=== PATIENT | female | born 1960 | race Caucasian/White ===

== ENCOUNTER 2019-12-14 13:33 | Outpatient (CLI) | payer OTHER, SELFPAY ==
--- NOTE | 2019-12-14 13:39 | MM_ITS ---
WS: [id number] BILATERAL DIGITAL SCREENING MAMMOGRAM WITH CAD CLINICAL INFORMATION: SCREENING HISTORY: Screening mammogram. No current complaints. COMPARISON: [id number] TECHNIQUE: Bilateral CC and MLO views. FINDINGS: Fatty-replaced breasts bilaterally. No suspicious focal mass, asymmetry, calcifications, or websphere commerce architect ural distortion. No evidence of malignancy. MM/[place] [id number] IMPRESSION: BI-RADS: 1-Negative FOLLOW UP: 1 Year Follow-up Recommend return to annual screening mammography.
== END 2019-12-14 13:34 | disposition home or self-care (01) ==
LOC: RADSHAW 13:36
PROVIDERS: Family Provider Family Medicine; PCP Family Medicine; Visit Provider Family Medicine
DX: Z12.31 Encounter for screening mammogram for malignant neoplasm of breast (principal)
CPT/HCPCS: 77067

== ENCOUNTER 2019-12-16 17:19 | Outpatient (CLI) | payer OTHER, SELFPAY | END 2019-12-16 17:20 | disposition home or self-care (01) | LOC: SPT 17:20 | PROVIDERS: Family Provider Family Medicine; PCP Family Medicine; Visit Provider Podiatrist Foot & Ankle Surgery | DX: M21.41 Flat foot [pes planus] (acquired), right foot (principal); M21.42 Flat foot [pes planus] (acquired), left foot | CPT/HCPCS: L3030 ==

== ENCOUNTER → 2022-05-29 07:55 | Outpatient (BNVA) | payer OTHER, SELFPAY | PROVIDERS: Family Provider Family Medicine; PCP Family Medicine; Visit Provider Family Medicine | DX: Z00.00 Encounter for general adult medical examination without abnormal findings (principal); I10 Essential (primary) hypertension; E88.81 Metabolic syndrome and other insulin resistance; G47.33 Obstructive sleep apnea (adult) (pediatric); J45.909 Unspecified asthma, uncomplicated | CPT/HCPCS: 80053; 80061; 82607; 83036; 84443; 85025 ==

== ENCOUNTER 2022-06-26 10:22 | Outpatient (CLI) | payer OTHER, SELFPAY ==
--- NOTE | 2022-06-26 10:47 | MM_ITS ---
WS: [id number] Exam: [place] [id number] Date/Time of Exam: 06/26/2022 10:48 AM Reason For Exam: SCREEN VIEWS: MLO and CC views both breasts. 3D digital tomosynthesis is also included in this exam. Comparison made with prior exam of 06/21/2013, 09/26/2014, 12/04/2015, 03/09/2018, 12/14/2019. Findings: There was no sign of mass, architectural distortion or suspicious calcification in either breast. Fa tty MM/[place] [id number] Impression: BI-RADS: 1-Negative FOLLOW-UP: 1 Year Follow-up This mammogram was also analyzed by the Computer Aided Detection System R2 Imag e Anesthesiologist Physician.
== END 2022-06-26 10:23 | disposition home or self-care (01) ==
LOC: RAD 10:23
PROVIDERS: Family Provider Family Medicine; PCP Family Medicine; Visit Provider Family Medicine
DX: Z12.31 Encounter for screening mammogram for malignant neoplasm of breast (principal)
CPT/HCPCS: 77063; 77067

== ENCOUNTER 2022-06-27 16:43 | Outpatient (CLI) | payer OTHER, SELFPAY ==
--- NOTE | 2022-06-27 16:54 | XR_ITS ---
WS: [id number] Exam: XR thoracic spine 2V [id number] Date/Time of Exam: 06/27/2022 4:54 PM Reason For Exam: back pain No fracture or dislocation. There is spondylosis. No scoliosis. Normal paraspinal soft tissues. XR/XR thoracic spine 2V [id number] IMPRESSION: 1. Mild degenerative change and spondylosis. 2. No fracture or other significant finding.
== END 2022-06-27 16:44 | disposition home or self-care (01) ==
LOC: RAD 16:43
PROVIDERS: PCP Family Medicine; Visit Provider Nurse Practitioner Family
DX: M47.814 Spondylosis without myelopathy or radiculopathy, thoracic region (principal)
CPT/HCPCS: 72070

== ENCOUNTER 2022-07-04 06:00 | Outpatient (RCR) | payer OTHER, SELFPAY | END 2022-07-31 23:59 | disposition home or self-care (01) | LOC: SPT 06:00 | PROVIDERS: Visit Provider Nurse Practitioner Family | DX: M54.9 Dorsalgia, unspecified (principal) | CPT/HCPCS: 20560; 97110; 97161; 97530 ==

== ENCOUNTER 2022-08-01 06:00 | Outpatient (RCR) | payer OTHER, SELFPAY | END 2022-08-30 23:59 | disposition home or self-care (01) | LOC: SPT 06:00 | PROVIDERS: PCP Family Medicine; Visit Provider Nurse Practitioner Family | DX: M54.59 Other low back pain (principal) | CPT/HCPCS: 97110; 97530 ==

== ENCOUNTER 2022-12-15 08:23 | Inpatient (IN) | payer OTHER, SELFPAY ==
[2022-12-15] VITALS (15 sets, daily range): BP systolic 170–218; BP diastolic 81–121; PULSE 70–94; RESP 16–26; TEMP 35.8–36.9; O2SAT 80–100; BMI 40.7
--- NOTE | 2022-12-15 08:29 | XRR_ITS ---
PROCEDURE INFORMATION: Exam: XR Chest Exam date and time: 12/15/2022 8:33 AM Age: 62 years old Clinical indication: Dyspnea; Additional info: Dyspne TECHNIQUE: Imaging protocol: Radiologic exam of the chest. Views: 1 view. COMPARISON: CR XR thoracic spine 2V [id number] 06/27/2022 4:53 PM FINDINGS: Lungs: Dense confluent consolidation in the right lung. Possible ground-glass consolidation in the left lower lung. Pleural spaces: No pneumothorax. No pleural effusion. Heart/Mediastinum: The cardiomediastinal silhouette is at the upper limits of normal. Bones/joints: Unremarkable. XR/XR chest 1V portable [id number] IMPRESSION: Airspace consolidation concerning for pneumonia versus pulmonary edema.
--- NOTE | 2022-12-15 08:31 | ED_ITS ---
HPI - SOB/Dyspnea General: Chief Complaint: Shortness of Breath/Dyspnea Stated Complaint: SOB Time Seen by Provider: 12/15/22 08:24 History of Present Illness: HPI Narrative: 62-year-old female presents with shortness of breath. Patient reports that around 2 AM this morning she awoke with short of breath took an albuterol and has some mild improvement. Then she awoke again at 430 and had to take another 1. Patient then just prior to arrival called EMS because she was once again short of breath. EMS reports that when they got there her oxygen was in the 80s she was found leaning forward in tripod position. They provided her with an albuterol nebulizer, DuoNeb and Solu-Medrol in route. On oxygen her O2 improved to mid 90s. PFSH ED PFSH: Medical History Back Pain Course Vital Signs: Vital signs: Vital Signs Temperature 96.5 F L 12/15/22 08:27 Pulse Rate 82 12/15/22 08:48 Respiratory Rate 17 12/15/22 08:48 Blood Pressure 185/93 12/15/22 10:49 Pulse Oximetry 94 12/15/22 08:48 Oxygen Delivery Me thod 12/15/22 08:48 Oxygen Flow Rate 9 12/15/22 08:48 MDM - SOB/Dyspnea Medical Decision Making Patient's x-ray showed some airspace consolidation with pneumonia versus pulmonary edema with the majority of in the right lower lobe. Patient's symptoms improved following treatment with both her albuterol along with nitro and hydralazine for blood pressure. Her blood pressure came down from the 220s down to 180. Reviewing her outpatient chart shows that her blood pressure is normally in the 160s. Discussed with her that it is likely a mixed picture of maybe some edema versus a pneumonia. Her respiratory panel was completely negative. She was treated with Rocephin and azithromycin for it with concerns or questionable community-acquired pneumonia. Patient does not normally require oxygen and will be admitted for further inpatient management. Reviewed case with Dr. Roque who is the accepting physician. Lab Data 12/15/22 08:10 12/15/22 08:10 Labs/Radiology: Radiology Impressions Chest X-Ray 12/15/22 08:29 IMPRESSION: Airspace consolidation concerning for pneumonia versus pulmonary edema. Laboratory Results WBC 9.4 10^3/uL (4.0-10.0) 12/15/22 08:10 RBC 5.29 10^6/uL (4.1-5.3) 12/15/22 08:10 Hgb 16.4 g/dL (11.5-15.3) H 12/15/22 08:10 Hct 51.1 % (37.0-47.0) H 12/15/22 08:10 MCV 96.6 fl (81-99) 12/15/22 08:10 MCH 31.0 pg (28.0-34.0) 12/15/22 08:10 MCHC 32.1 g/dL (30.0-36.0) 12/15/22 08:10 RDW 13.4 % (12.1-15.1) 12/15/22 08:10 Plt Count 296 10^3/cmm (130-400) 12/15/22 08:10 MPV 11.6 fL (7.4-10.4) H 12/15/22 08:10 Neut % (Auto) 73.7 % 12/15/22 08:10 Lymph % (Auto) 13.7 % 12/15/22 08:10 [place] % (Auto) 7.5 % 12/15/22 08:10 Eos % (Auto) 3.9 % 12/15/22 08:10 Baso % (Auto) 0.6 % 12/15/22 08:10 Neut # (Auto) 6.90 10^3/uL (1.8-7.7) 12/15/22 08:10 Lymph # (Auto) 1.3 10^3/uL (0.8-4.8) 12/15/22 08:10 [place] # (Auto) 0.7 10^3/uL (0.2-0.9) 12/15/22 08:10 Eos # (Auto) 0.4 10^3/uL (0.0-0.8) 12/15/22 08:10 Baso # (Auto) 0.1 10^3/uL (0.0-0.1) 12/15/22 08:10 Nucleated RBC % (auto) 0 % 12/15/22 08:10 Nucleated RBCs # 0.0 /100WBC 12/15/22 08:10 Sodium 135 mmol/L (136-145) L 12/15/22 08:10 Potassium 4.1 mmol/L (3.5-5.1) 12/15/22 08:10 Chloride 99 mmol/L (98-107) 12/15/22 08:10 Carbon Dioxide 22 mmol/L (22-29) 12/15/22 08:10 Anion Gap 18.1 (5-19) 12/15/22 08:10 BUN 16 mg/dL (8-23) 12/15/22 08:10 Creatinine 1.2 mg/dL (0.5-0.9) H 12/15/22 08:10 GFR Calculation 45.2 mL/min (90-130) L 12/15/22 08:10 Glucose 282 mg/dL (65-115) H 12/15/22 08:10 Calculated Osmolality 291 mOsm/kg (285-295) 12/15/22 08:10 Lactate 2.4 mmol/L (0.5-2.2) H 12/15/22 09:00 Calcium 8.5 mg/dL (8.5-10.5) 12/15/22 08:10 Magnesium 2.1 mg/dL (1.7-2.3) 12/15/22 08:10 NT-Pro-B Natriuret Pep 611 pg/mL (0-125) H 12/15/22 08:10 Nasal Influ A H1 2008 PCR Not detected (NOT DETECT) 12/15/22 08:10 Adenovirus (PCR) Not detected (NOT DETECT) 12/15/22 08:10 C. pneumoniae DNA (PCR) Not detected (NOT DETECT) 12/15/22 08:10 Coronavirus 229E (PCR) Not detected (NOT DETECT) 12/15/22 08:10 Human Metapneumovir PCR Not detected (NOT DETECT) 12/15/22 08:10 Influenza A (H1) PCR Not detected (NOT DETECT) 12/15/22 08:10 Influenza A (H3) PCR Not detected (NOT DETECT) 12/15/22 08:10 Influenza Type A (PCR) Not detected (NOT DETECT) 12/15/22 08:10 Influenza Type B (PCR) Not detected (NOT DETECT) 12/15/22 08:10 M. pneumoniae (PCR) Not detected (NOT DETECT) 12/15/22 08:10 Parainfluenza 1 (PCR) Not detected (NOT DETECT) 12/15/22 08:10 Parainfluenza 2 (PCR) Not detected (NOT DETECT) 12/15/22 08:10 Parainfluenza 3 (PCR) Not detected (NOT DETECT) 12/15/22 08:10 Parainfluenza 4 (PCR) Not detected (NOT DETECT) 12/15/22 08:10 RSV Type A (PCR) Not detected (NOT DETECT) 12/15/22 08:10 RSV Type B (PCR) Not detected (NOT DETECT) 12/15/22 08:10 Entero/Rhino (PCR) Not detected (NOT DETECT) 12/15/22 08:10 SARS-CoV-2 (PCR) Not detected (NOT DETECT) 12/15/22 08:10 Discharge Plan Discharge Patient Disposition: Admitted As Inpatient Clinical Impression: Community acquired pneumonia, Pulmonary edema, Hypertension, uncontrolled Condition: Stable Prescriptions: No Action meloxicam 15 mg tablet 15 mg PO DAILY Qty: 30 3RF fluticasone propionate [Allergy Relief (fluticasone)] 50 mcg/actuation spray,suspension 2 spray intranasal DAILY Rx Instructions: administer into each nostril albuterol sulfate [ProAir HFA] 90 mcg/actuation HFA aerosol inhaler 2 puff inhalation Q6H PRN bupropion HCl 150 mg tablet sustained-release 12 hr 150 mg PO BID levofloxacin 500 mg tablet 500 mg PO DAILY Qty: 7 0RF fluoxetine 20 mg capsule 20 mg PO cyclobenzaprine 10 mg tablet 10 mg PO TID Qty: 45 0RF hydrocodone-acetaminophen 7.5-325 mg tablet 1 tab PO Q4H PRN (Reason: pain) 30 Days Qty: 35 0RF Referrals: Fernando Cheney DO [Primary Care Provider] - Coding Level of Care Code ED Die Cast Operator for Jorge Kelsey
--- NOTE | 2022-12-15 08:35 | ECG_ITS ---
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 Measurements Intervals [place] Rate: 85 P: 58 TN: 150 QRS: 2 QRSD: 114 T: 79 QT: 363 QTc: 433 Interpretive Statements SINUS RHYTHM POSSIBLE RIGHT ATRIAL ENLARGEMENT [0.25mV P-WAVE] LEFT ATRIAL ENLARGEMENT [-0.15mV P-WAVE IN V1/V2] MODERATE INTRAVENTRICULAR CONDUCTION DELAY [110+ ms QRS DURATION] NONSPECIFIC T-WAVE ABNORMALITY No previous ECG available for comparison Electronically Signed On 12-15-2022 10:08:58 WILLOWER by Adrián Marie M.D. [id number]
[2022-12-15 09:05] LABS: Basophils # 0.1 10^3/uL (0.0-0.1); Basophils % 0.6 %; Eosinophils # 0.4 10^3/uL (0.0-0.8); Eosinophils % 3.9 %; Hematocrit 51.1 % (37.0-47.0); Hemoglobin 16.4 g/dL (11.5-15.3); Lymphocytes # 1.3 10^3/uL (0.8-4.8); Lymphocytes % 13.7 %; Mean Corpuscular HGB Conc 32.1 g/dL (30.0-36.0); Mean Corpuscular Volume 96.6 fl (81-99); Mean Platelet Volume 11.6 fL (7.4-10.4); Monocytes # 0.7 10^3/uL (0.2-0.9); Monocytes % 7.5 %; Neutrophils % 73.7 %; Nucleated Red Blood Cells % 0 %; Platelet Count 296 10^3/cmm (130-400); Red Blood Count 5.29 10^6/uL (4.1-5.3); Red Cell Distribution Width 13.4 % (12.1-15.1); White Blood Count 9.4 10^3/uL (4.0-10.0)
[2022-12-15] MEDS: cefTRIAXone 1,000 MG in sodium chloride 0.9% (plus) 50 ML 100 MG IV (09:32)
[2022-12-15] MEDS: azithromycin 500 MG in sodium chloride 0.9% 250 ML 250 MG IV (09:32)
[2022-12-15 09:34] LABS: Lactate (Lactic Acid level) 2.4 mmol/L (0.5-2.2)
[2022-12-15 09:35] LABS: Anion Gap 18.1 (5-19); Blood Urea Nitrogen 16 mg/dL (8-23); Calcium 8.5 mg/dL (8.5-10.5); Carbon Dioxide 22 mmol/L (22-29); Chloride 99 mmol/L (98-107); Glomerular Filtration Rate 45.2 mL/min (90-130); Glucose 282 mg/dL (65-115); Magnesium 2.1 mg/dL (1.7-2.3); NT Pro B Type Natriuretic Pept 611 pg/mL (0-125); Osmolality Calculated 291 mOsm/kg (285-295); Potassium 4.1 mmol/L (3.5-5.1); Sodium 135 mmol/L (136-145)
[2022-12-15] MEDS: enalaprilat 1.25 mg/mL Inj 0.625 MG IVP (09:35)
[2022-12-15] MEDS: nitroglycerin 0.4 mg sublingual Tablet SUBLINGUAL (09:35)
[2022-12-15 10:58] LABS: Adenovirus Not Detected (NOT DETECT); Chlamydia Pneumoniae Not Detected (NOT DETECT); Coronavirus 229E,HKU1,NL63,OC4 Not Detected (NOT DETECT); Human Metapneumovirus Not Detected (NOT DETECT); Human Rhinovirus/Enterovirus Not Detected (NOT DETECT); Influenza A Not Detected (NOT DETECT); Influenza A H1 Not Detected (NOT DETECT); Influenza A H1-2009 Not Detected (NOT DETECT); Influenza A H3 Not Detected (NOT DETECT); Influenza B Not Detected (NOT DETECT); Mycoplasma Pneumoniae Not Detected (NOT DETECT); Parainfluenza Virus Type 1 Not Detected (NOT DETECT); Parainfluenza Virus Type 2 Not Detected (NOT DETECT); Parainfluenza Virus Type 3 Not Detected (NOT DETECT); Parainfluenza Virus Type 4 Not Detected (NOT DETECT); Respiratory Syncytial Virus A Not Detected (NOT DETECT); Respiratory Syncytial Virus B Not Detected (NOT DETECT); SARS-COV-2 Not Detected (NOT DETECT)
[2022-12-15] MEDS: enoxaparin 40 mg/0.4 mL Syringe SUBCUT (14:14)
[2022-12-15] MEDS: pantoprazole 40 mg SDV IVP (14:15)
[2022-12-15] MEDS: acetaminophen 325 mg Tablet 650 MG PO (14:18)
[2022-12-15 14:49] LABS: Procalcitonin 0.23 ng/mL (0-0.5)
[2022-12-15] MEDS: ipratropium-albuterol 3 mL Neb INHALATION ×2 (15:48→20:37)
--- NOTE | 2022-12-15 20:55 | P.HP_ITS ---
Providers/Chief Complaint Admitting Physician: Adis Roque DO Primary Care Provider: Fernando Cheney DO Chief Complaint: SOB History of Present Illness Bertha Holguin is a 62 year old female with PMH of HTN, asthma who presented to ER with complaint of difficulty breathing. Reports that symptoms started during the night, with shortness of breath. She used her albuterol inhaler around 2 this morning after awaking with shortness of breath, and again at 430 this morning. She again woke up this morning with dyspnea and elected to call EMS and be evaluated. Upon arrival at the ER, she was noted to be in tripod position with increased work of breathing and oxygen saturation in the 80's. This did improve with supplemental oxygen. She did recieve dose of steroids in the ambulance and was started on breathing treatments. She denies any other recent illness, fever, chills, and says that she has not experienced any chest pain. She did have one episode of diaphoresis earlier this morning. In the ER, labs, CXR, EKG were performed. Labs demonstrated a very mild hy ponatremia with Na at 135, elevated creatinine to 1.2 and elevated lactate. EKG showed sinus rhythm with possible RA enlargement and LA enlargement. CXR was significant for consolidation of the Right lung, possible pleural effusion and ground glass consolidation of the Left lung. Oxygen saturation initially in the 80's that did improve with supplemental oxygen. BP was also noted to be quite elevated with systolic pressures into the 200's at one point. She was started on Rocephin and Azithromycin for presumed pneumonia. Review of Systems General: Reports: 10 or more systems reviewed and unremarkable except in HPI and below Const: Reports: fatigue; Denies: fever(s), chills or body aches Eyes: Denies: change in vision or blurry vision ENMT: Denies: throat pain, uvular edema or enlarged tonsils Card: Denies: chest pain, palpitations or irregular heart rhythm Resp: Reports: dyspnea, non-productive cough and wheezing; Denies: productive cough GI: Denies: abdominal pain, nausea or vomiting : Denies: flank pain, difficulty voiding or dysuria Musc: Denies: neck pain, back pain or extremity pain Skin/Breast: Denies: rash Neuro: Denies: headache(s) Psych: Denies: anxiety or depression Justin/Lymph: Denies: easy bruising or easy bleeding All/Imm: Denies: urticaria Medications/Allergies Home Medications Medication Instructions Recorded Confirmed Last Taken Type albuterol sulfate 90 mcg/actuation 2 puff inhalation Q6H PRN 06/27/22 12/15/22 U nknown History aerosol inhaler (ProAir HFA) Shortness Of Breath bupropion HCl 150 mg tablet,12 hr 150 mg PO BID 06/27/22 12/15/22 12/15/22 History sustained-release fluticasone propionate 50 2 spray intranasal DAILY 06/27/22 12/15/22 Unknown History mcg/actuation nasal spray,suspension (Allergy Relief (fluticasone)) meloxicam 15 mg tablet 15 mg PO DAILY #30 tabs 07/04/22 12/15/22 12/15/22 Rx hydrocodone 7.5 mg-acetaminophen 1 tab PO Q4H PRN pain 1 month #35 07/16/22 12/15/22 Unknown Rx 325 mg tablet tabs fluoxetine 20 mg capsule 20 mg PO DAILY 10/09/22 12/15/22 12/15/22 History Allergies Allergy/AdvReac Type Severity Reaction Status Date / Time No Known Allergies Allergy Verified 07/04/22 09:09 PFSH Acute PFSH: Medical History (Updated 12/15/22 @ 21:34 by Adis Roque DO) Back Pain Hypertension Vitals/I&O/Wt Last Vital Signs Temp 98.2 F 12/15/22 20:00 Pulse 84 12/15/22 20:38 Resp 16 12/15/22 20:38 BP 176/81 12/15/22 20:00 Pulse Ox 94 12/15/22 20:38 O2 Del Method 12/15/22 20:38 O2 Flow Rate 3 12/15/22 20:38 12/15/22 12/15/22 12/15/22 06:59 14:59 22:59 Intake Total 300 / 300 480 / 780 Balance 300 / 300 480 / 780 Weight last 48 hrs Weight 260 lb Physical Exam Narrative: General: Cooperative patient, mildly anxious appearing. Well developed. HEENT: Normocephalic, Atraumatic. External ears normal. Nasal passages patent without drainage. MMM. Heart: RRR. No rubs, gallops or murmurs. Resp: Rales present throughout the lung posey. MIld respiratory distress noted. No accessory muscle use. Abd: Soft, non-tender, Non-distended. Extremities: No edema. Skin: No rash or lesions on exposed areas. Data 12/15/22 08:10 12/15/22 08:10 A&P Assessment and plan (1) Community acquired pneumonia: (2) Pulmonary edema: (3) Hypertension, uncontrolled: (4) Acute respiratory failure with hypoxia: (5) Blood glucose elevated: Plan 62 y/o F with PMH of HTN and asthma admitted for hypoxia, shortness of breath and presumed pneumonia. - Admit to [facility] inpatient workup and treatment. - DDx; Pneumonia vs. PE vs. Pneumonitis vs. Pleural effusion. - CXR with Right lung consolidation. Has not had chest pain or tachycardia throughout the monitoring period. EKG did not demonstrate ST-T elevation. - WBC count normal at this time. Respiratory panel was negative. COVID,flu n egative. Elevated lactate. - Will continue Rocephin, Azithromycin for suspected Pneumonia. - Recheck labs in a.m. Repeat Lactate - Procalcitonin. - Start amlodipine for HTN. - Received NS bolus and will continue IV fluids. - RAAT and O2 protocol to maintain sats >90%. DuoNebs q6hr. - Methylprednisolone 60mg q12hr for now. - DVT PPx with lovenox. - Glucose was elevated on admission, will check A1c. - Continue telemetry, q4 vitals. - Regular diet. - Continue other home medications for chronic illnesses. Code Status: Full Diet: regular DVT PPx: Lovenox GI PPx: Protonix IVF: NS @ 100ml/hr. Disposition: Med/Surg. Likely discharge to home when stable. Attestations Medical Necessity Statement*: Patient will need greater than 2 midnight stay for pneumonia with possible sepsis, acute respiratory failure requiring supplemental oxygen, hypertensive urgency, IV antibiotics. Time Spent in Patient Care: Greater than 35 minutes (>than 50% of time spent in counselling and/or direct pt care on unit) . Coding Level of Care Code Acute Code for Chg Fwd Diagnoses Community acquired pneumonia J18.9 Pulmonary edema J81.1 Hypertension, uncontrolled I10 Acute respiratory failure with hypoxia J96.01 Blood glucose elevated R73.9
[2022-12-15] MEDS: sodium chloride 0.9% 1,000 ML 100 ML IV (21:44)
[2022-12-16] VITALS (11 sets, daily range): BP systolic 153–195; BP diastolic 74–91; PULSE 59–85; RESP 16–18; TEMP 36.5–36.8; O2SAT 94–97
[2022-12-16 04:24] LABS: Basophils % 0.1 %; Hematocrit 41.3 % (37.0-47.0); Hemoglobin 13.6 g/dL (11.5-15.3); Lymphocytes # 0.4 10^3/uL (0.8-4.8); Lymphocytes % 2.7 %; Mean Corpuscular HGB Conc 32.9 g/dL (30.0-36.0); Mean Corpuscular Hemoglobin 31.4 pg (28.0-34.0); Mean Corpuscular Volume 95.4 fl (81-99); Mean Platelet Volume 10.9 fL (7.4-10.4); Monocytes # 0.3 10^3/uL (0.2-0.9); Monocytes % 2.1 %; Neutrophils # 14.65 10^3/uL (1.8-7.7); Neutrophils % 94.6 %; Nucleated Red Blood Cells % 0 %; Platelet Count 246 10^3/cmm (130-400); Red Blood Count 4.33 10^6/uL (4.1-5.3); Red Cell Distribution Width 13.3 % (12.1-15.1); White Blood Count 15.5 10^3/uL (4.0-10.0)
[2022-12-16 04:40] LABS: Lactate (Lactic Acid level) 2.4 mmol/L (0.5-2.2)
[2022-12-16 04:41] LABS: Alanine Aminotransferase 41 U/L (0-33); Albumin Level 3.8 g/dL (3.5-5.2); Alkaline Phosphatase 58 U/L (35-105); Anion Gap 14.3 (5-19); Aspartate Amino Transferase 26 U/L (0-32); Blood Urea Nitrogen 24 mg/dL (8-23); Calcium 9.1 mg/dL (8.5-10.5); Carbon Dioxide 23 mmol/L (22-29); Chloride 100 mmol/L (98-107); Globulin 2.8 g/dL (1.3-4.6); Glomerular Filtration Rate 45.2 mL/min (90-130); Glucose 209 mg/dL (65-115); Osmolality Calculated 286 mOsm/kg (285-295); Potassium 4.3 mmol/L (3.5-5.1); Sodium 133 mmol/L (136-145); Total Bilirubin 0.4 mg/dL (0.15-1.2); Total Protein 6.6 g/dL (6.6-8.7)
--- NOTE | 2022-12-16 04:41 | PC.NURSE ---
Patient has been awake all throughout the night. Patient stated to DAY CARE CENTER DIRECTOR she is used to wearing a CPAP and when she asked for one and it never got brought to her she assumed it had just gotten lost. DAY CARE CENTER DIRECTOR reassured patient she will have one at bedside tonight, nurse notified to speak to respiratory.
[2022-12-16 06:03] LABS: Estmated Average Glucose 140; Hemoglobin A1C 6.5 % (4.0-6.0)
[2022-12-16] MEDS: ipratropium-albuterol 3 mL Neb INHALATION ×2 (07:53→11:40)
[2022-12-16] MEDS: sodium chloride 0.9% 1,000 ML 100 ML IV (08:47)
[2022-12-16] MEDS: fluoxetine 20 mg Capsule PO (08:47)
[2022-12-16] MEDS: buPROPion SR (12 HR) 150 mg Tablet PO (08:48)
--- NOTE | 2022-12-16 10:44 | PC.CHAP ---
Pastoral Care Encounter/Spiritual Assessment Type of Contact [] Declined bungy jump master visit [] Patient/Family/Request visit [] Outpatient visit [] Follow-up visit [] Physician referral [] Code/Alert [x] Routine visit [] Staff referral [] Actively dying [] Patient sleeping [] Family support [] [] Out of room [] Palliative care [] [] Receiving care in room [] Pre-surgical visit [] Trauma [] Long length of stay [] ICU visit [] Other: Relational/Emotional Strength [x] Patient feels connected with others/family/visitors/staff [] Distress [] Loneliness/isolation [] Abandonment Spirituality of Patient [x] Person of Mary [] Attends Amish of their Mary [x] Believes in Prayer [] Reads Bible or Jew materials [] There are Spiritual issues to be addressed Wood Products Manufacturer Interventions [x] Prayer [x] Active listening [] Non-anxious presence [x] Spiritual/emotional support [] Crisis/trauma care [] Spiritual counseling [] Bereavement support [] Provided bereavement packet [] Provided Bible/devotional materials [] Provided toy/stuffed animal, coloring book to patient or family member [] Provided Communion [] Anointing/Basom [] Salvation [x] Completed spiritual assessment [] Other: Impact on Illness or Injury [] Angry [] Fearful [] Anxious [] Often cries [] Exhaustion [] Unable to work [] Unable to attend caodaism [] Unable to walk/stand [] Unable to read [] Unable to drive [] Unable to eat/drink [] Unable to sleep [] Unable to be with family [] Patient intubated [] Other: Summary Time spent with patient 10 min
--- NOTE | 2022-12-16 11:27 | PM.DCS ---
Discharge Providers Date of Admission: 12/15/22 11:18 Date of Discharge: December 16, 2022 Attending Provider at Admission: Adis Roque DO Attending Provider at Discharge: Kehinde Armenta Primary Care Provider: Fernando Cheney DO Diagnoses at Discharge Discharge Diagnosis (1) Community acquired pneumonia: Status: Acute (2) Pulmonary edema: Status: Acute (3) Hypertension, uncontrolled: Status: Acute (4) Acute respiratory failure with hypoxia: Status: Acute (5) Blood glucose elevated: Status: Acute Reason for Visit Reason for Visit: SOB Hospital Course Hospital Course Pleasant 62 lady with history of asthma, HTN, prior dislocation syndrome MTP joint left foot, was admitted for assessment of management due to acute respiratory failure with new oxygen requirement with hypoxia with findings of presumed pneumonia in right lower lobe, with noted consolidation on chest x-ray, with possible GGO in left lower lung. She presented with severe dyspnea, unimproved after using her albuterol inhaler at home. Oxygen saturation 90 in the 80s. Started on supplemental oxygen, received breathing treatments, while in hospital received treatment with IV Solu-Medrol, antibiotic coverage with ceftriaxone and azithromycin. Nebs. Viral respiratory panel was negative. Urine bacterial antigens were collected returned negative. She has not had much phlegm and has been unable to provide a sputum sample. Some concern in the differential for possibility of pulm edema was mentioned as well, although NT proBNP was only 611. Wells score low for PE. On presentation also with acute kidney injury, creatinine 1.2. During hospitalization blood pressures were found elevated specially on presentation up to 218/121. Nonspecific T wave abnormality on EKG. Moderate intraventricular conduction delay. Possible RA, LA enlargement. Has received treatment with nitroglycerin initially, subsequently also started on amlodipine 5 mg. Blood pressures have improved. A1c noted 6.5. With treatment respiratory distress resolved, breathing and oxygenation gradually improved. She weaned off oxygen today. Initially saturations decreasing just from moving in bed, today has been able to ambulate to the restroom on room air so far. Home oxygen evaluation is requested. She will complete ceftriaxone azithromycin course and prednisone taper at discharge. Once she is out of acute illness consider additional assessment with sleep study. Due to LAVELL she is asked to stop meloxicam, consider avoiding or using only short bursts due to risks of [place], CVA with the medication and risk factors, as well as due to potential for kidney injury. Please follow-up renal function. Blood pressure has improved with amlodipine, but would benefit from further optimization. Continues on amlodipine. In case renal function improves, consider addition of DANII inhibitor or ARB due to also presence of diabetes. Metformin is also initiated. Physical Exam Const: COMMON NORMALS: patient oriented x3 and alert GENERAL APPEARANCE: cooperative ORIENTATION/CONSCIOUSNESS: Yes awake OTHER: In good spirits, pleasant, conversant. HENMT: COMMON NORMALS: oropharynx normal Neck/C-Spine: COMMON NORMALS: no JVD Resp: COMMON NORMALS: normal respiratory effort and clear to auscultation bilaterally EFFORT & INSPECTION: Yes able to speak in complete sentences AUSCULTATION: clear to auscultation bilaterally Cardio: COMMON NORMALS: no JVD, regular rhythm, S1 normal heart sound present, S2 normal heart sound present and No murmurs present (Cardio) RHYTHM: regular rhythm HEART SOUNDS: S1 normal heart sound present and S2 normal heart sound present GI: COMMON NORMALS: Normal to inspection, nondistended, normoactive bowel sounds present, Soft to palpation and non-tender PALPATION: Yes Soft to palpation Extremity: COMMON NORMALS: no joint enlargement and no pedal edema Neuro: COMMON NORMALS: patient oriented x3 and moves all extremities SENSORIUM/ORIENTATION: Yes alert Skin: COMMON NORMALS: no rashes or lesions noted GENERAL SKIN EXAM: no rashes or lesions noted Discharge Data Studies Completed and Pending Completed Studies During Hospitalization Category Date Time Status XR chest 1V portable 18300 Stat Exams 12/15/22 08:29 Completed Radiology Impressions Chest X-Ray 12/15/22 08:29 IMPRESSION: Airspace consolidation concerning for pneumonia versus pulmonary edema. Laboratory Results WBC 15.5 10^3/uL (4.0-10.0) H 12/16/22 04:14 RBC 4.33 10^6/uL (4.1-5.3) 12/16/22 04:14 Hgb 13.6 g/dL (11.5-15.3) 12/16/22 04:14 Hct 41.3 % (37.0-47.0) 12/16/22 04:14 MCV 95.4 fl (81-99) 12/16/22 04:14 MCH 31.4 pg (28.0-34.0) 12/16/22 04:14 MCHC 32.9 g/dL (30.0-36.0) 12/16/22 04:14 RDW 13.3 % (12.1-15.1) 12/16/22 04:14 Plt Count 246 10^3/cmm (130-400) 12/16/22 04:14 MPV 10.9 fL (7.4-10.4) H 12/16/22 04:14 Neut % (Auto) 94.6 % 12/16/22 04:14 Lymph % (Auto) 2.7 % 12/16/22 04:14 Power % (Auto) 2.1 % 12/16/22 04:14 Eos % (Auto) 0.0 % 12/16/22 04:14 Baso % (Auto) 0.1 % 12/16/22 04:14 Neut # (Auto) 14.65 10^3/uL (1.8-7.7) H 12/16/22 04:14 Lymph # (Auto) 0.4 10^3/uL (0.8-4.8) L 12/16/22 04:14 Power # (Auto) 0.3 10^3/uL (0.2-0.9) 12/16/22 04:14 Eos # (Auto) 0.0 10^3/uL (0.0-0.8) 12/16/22 04:14 Baso # (Auto) 0.0 10^3/uL (0.0-0.1) 12/16/22 04:14 Nucleated RBC % (auto) 0 % 12/16/22 04:14 Nucleated RBCs # 0.0 /100WBC 12/16/22 04:14 Sodium 133 mmol/L (136-145) L 12/16/22 04:14 Potassium 4.3 mmol/L (3.5-5.1) 12/16/22 04:14 Chloride 100 mmol/L (98-107) 12/16/22 04:14 Carbon Dioxide 23 mmol/L (22-29) 12/16/22 04:14 Anion Gap 14.3 (5-19) 12/16/22 04:14 BUN 24 mg/dL (8-23) H 12/16/22 04:14 Creatinine 1.2 mg/dL (0.5-0.9) H 12/16/22 04:14 GFR Calculation 45.2 mL/min (90-130) L 12/16/22 04:14 Glucose 209 mg/dL (65-115) H 12/16/22 04:14 Estimat Average Glucose 140 12/16/22 04:14 Hemoglobin A1c 6.5 % (4.0-6.0) H 12/16/22 04:14 Calculated Osmolality 286 mOsm/kg (285-295) 12/16/22 04:14 Lactate 2.4 mmol/L (0.5-2.2) H 12/16/22 04:14 Calcium 9.1 mg/dL (8.5-10.5) 12/16/22 04:14 Magnesium 2.1 mg/dL (1.7-2.3) 12/15/22 08:10 Total Bilirubin 0.4 mg/dL (0.15-1.2) 12/16/22 04:14 AST 26 U/L (0-32) 12/16/22 04:14 ALT 41 U/L (0-33) H 12/16/22 04:14 Alkaline Phosphatase 58 U/L (35-105) 12/16/22 04:14 NT-Pro-B Natriuret Pep 611 pg/mL (0-125) H 12/15/22 08:10 Total Protein 6.6 g/dL (6.6-8.7) 12/16/22 04:14 Albumin 3.8 g/dL (3.5-5.2) 12/16/22 04:14 Globulin 2.8 g/dL (1.3-4.6) 12/16/22 04:14 Procalcitonin 0.23 ng/mL (0-0.5) 12/15/22 14:00 Nasal Influ A H1 2009 PCR Not detected (NOT DETECT) 12/15/22 08:10 Adenovirus (PCR) Not detected (NOT DETECT) 12/15/22 08:10 C. pneumoniae DNA (PCR) Not detected (NOT DETECT) 12/15/22 08:10 Coronavirus 229E (PCR) Not detected (NOT DETECT) 12/15/22 08:10 Human Metapneumovir PCR Not detected (NOT DETECT) 12/15/22 08:10 Influenza A (H1) PCR Not detected (NOT DETECT) 12/15/22 08:10 Influenza A (H3) PCR Not detected (NOT DETECT) 12/15/22 08:10 Influenza Type A (PCR) Not detected (NOT DETECT) 12/15/22 08:10 Influenza Type B (PCR) Not detected (NOT DETECT) 12/15/22 08:10 M. pneumoniae (PCR) Not detected (NOT DETECT) 12/15/22 08:10 Parainfluenza 1 (PCR) Not detected (NOT DETECT) 12/15/22 08:10 Parainfluenza 2 (PCR) Not detected (NOT DETECT) 12/15/22 08:10 Parainfluenza 3 (PCR) Not detected (NOT DETECT) 12/15/22 08:10 Parainfluenza 4 (PCR) Not detected (NOT DETECT) 12/15/22 08:10 RSV Type A (PCR) Not detected (NOT DETECT) 12/15/22 08:10 RSV Type B (PCR) Not detected (NOT DETECT) 12/15/22 08:10 Entero/Rhino (PCR) Not detected (NOT DETECT) 12/15/22 08:10 SARS-CoV-2 (PCR) Not detected (NOT DETECT) 12/15/22 08:10 Vitals Last Vital Signs Temp 97.8 F 12/16/22 07:38 Pulse 81 12/16/22 07:57 Resp 16 12/16/22 07:53 BP 174/79 12/16/22 07:38 Pulse Ox 97 12/16/22 07:53 O2 Del Method 12/16/22 07:38 O2 Flow Rate 2 12/16/22 07:53 Discharge Plan Discharge Patient Disposition: Home Condition: Stable Prescriptions: New (DME) diabetic supplies, miscellan. Misc See Rx Instructions .Route Qty: 1 0RF Rx Instructions: As directed amlodipine 5 mg Tablet 5 mg PO DAILY Qty: 90 0RF benzonatate 100 mg Capsule 200 mg PO TID PRN (Reason: Cough) Qty: 30 2RF cefdinir 300 mg capsule 300 mg PO BID 5 Days Qty: 10 0RF pantoprazole 40 mg tablet,delayed release (DR/EC) 40 mg PO QAM Qty: 14 0RF prednisone 20 mg tablet 20 mg PO DAILY Qty: 20 0RF Rx Instructions: 3 tab daily for 3 days, then 2 tab for 3 days, then 1 tab for 3 days, then 1/2 tab for 4 days. azithromycin 250 mg tablet 250 mg PO DAILY 5 Days Qty: 5 0RF metformin 500 mg tablet 500 mg PO BID Qty: 180 0RF Continued fluticasone propionate [Allergy Relief (fluticasone)] 50 mcg/actuation spray,suspension 2 spray intranasal DAILY Rx Instructions: administer into each nostril bupropion HCl 150 mg tablet sustained-release 12 hr 150 mg PO BID fluoxetine 20 mg capsule 20 mg PO DAILY hydrocodone-acetaminophen 7.5-325 mg tablet 1 tab PO Q4H PRN (Reason: pain) 30 Days Qty: 35 0RF albuterol sulfate [ProAir HFA] 90 mcg/actuation HFA aerosol inhaler 2 puff inhalation Q6H PRN (Reason: Shortness Of Breath) Qty: 8.5 0RF Discontinued meloxicam 15 mg tablet 15 mg PO DAILY Qty: 30 3RF Discharge Orders: Discharge Order (Routine); Ordered 12/16/22 Ordered By: Kehinde Armenta Referrals: Fernando Cheney DO [Primary Care Provider] - 12/19/22 8:00 am Discharge Diet: Cardiac and Diabetic Patient Instructions: Prednisone (By mouth), Azithromycin (By mouth), Cefdinir (By mouth), Acute Kidney Injury (GEN), Bacterial Pneumonia (GEN), Hypertension (GEN), Type 2 Diabetes Management for Adults (GEN), Opioid Safety Activity Restrictions/Additional Instructions: Follow-up with your primary doctor for reassessment after resolution of pneumonia, reassessment of oxygenation. Complete antibiotic course. Steroid course. Monitor blood glucose at home. While on steroid blood glucose may be higher than usual. Maintain consistent carbohydrate diet. We are also starting with metformin, please follow-up with your primary doctor for reassessment and further management of diabetes and hypertension. You are started on amlodipine at discharge, once acute kidney injury is found resolved, and renal function stable, consider addition of DANII inhibitor or ARB. You are provided with diabetic supplies with glucometer, lancets and test strips in case you do not already have them. Would stop NSAID. Avoid unless needed in short bursts due to risk of LAVELL, with meloxicam also risks of AMI, CVA, other. At follow-up please discuss with your primary doctor referral for sleep study for additional assessment once you recover from acute illness. Discharge Attestations Time Spent in Discharge Care*: greater than 30 min Quality Metrics Clinical Quality Measures [ No reported AMI, CVA or VTE this stay] Coding Level of Care Code Acute [facility] note Diagnoses Community acquired pneumonia J18.9 Pulmonary edema J81.1 Hypertension, uncontrolled I10 Acute respiratory failure with hypoxia J96.01 Blood glucose elevated R73.9
--- NOTE | 2022-12-16 11:56 | PC.SOCIAL ---
Pt didnt Qualify for oxygen at this time
[2022-12-16] MEDS: cefTRIAXone 1,000 MG in sodium chloride 0.9% (plus) 50 ML 100 MG IV (12:01)
[2022-12-16] MEDS: azithromycin 500 MG in sodium chloride 0.9% 250 ML 250 MG IV (12:41)
== END 2022-12-16 13:36 | disposition home or self-care (01) | DRG 189 ==
LOC: ER 11:38 → MEDSURG 12:02
PROVIDERS: Admitting Provider Family Medicine; Emergency Provider Student in an Organized Health Care Education/Training Program; PCP Family Medicine; Visit Provider Internal Medicine
DX: J96.01 Acute respiratory failure with hypoxia (principal); J18.9 Pneumonia, unspecified organism; N17.9 Acute kidney failure, unspecified; J81.1 Chronic pulmonary edema; R94.31 Abnormal electrocardiogram [ECG] [EKG]; J45.909 Unspecified asthma, uncomplicated; I16.0 Hypertensive urgency; I10 Essential (primary) hypertension
CPT/HCPCS: 36415; 71045; 80048; 80053; 83036; 83605; 83735; 83880; 84145; 85025; 86403; 87449; 87486; 87581; 87633; 93005; 94640; 94664; 94760; 96365; 96367; 96372; 96375; 99285; C9113; J0456; J0696; J1650; J2930; J3490; J7030; J7050

== ENCOUNTER → 2022-12-19 08:29 | Outpatient (BNVA) | payer OTHER, SELFPAY | PROVIDERS: PCP Family Medicine; Visit Provider Family Medicine | DX: J18.9 Pneumonia, unspecified organism (principal); I10 Essential (primary) hypertension; N28.9 Disorder of kidney and ureter, unspecified | CPT/HCPCS: 80053; 85025 ==

== ENCOUNTER 2022-12-27 13:09 | Outpatient (RCR) | payer OTHER, SELFPAY | END 2022-12-31 23:59 | disposition home or self-care (01) | LOC: LAB 13:09 | PROVIDERS: PCP Family Medicine; Visit Provider Family Medicine | DX: R19.7 Diarrhea, unspecified (principal) | CPT/HCPCS: 87493 ==

== ENCOUNTER → 2023-07-01 14:17 | Outpatient (BNVA) | payer OTHER, SELFPAY | PROVIDERS: PCP Family Medicine; Visit Provider Nurse Practitioner Family | DX: R39.15 Urgency of urination (principal); N30.01 Acute cystitis with hematuria | CPT/HCPCS: 81000; 87077; 87086; 87184 ==